=== PATIENT | female | born 1960 | race Two or more races ===

== ENCOUNTER 2019-08-22 08:58 | Emergency (ER) | payer OTHER ==
[~2019-08-22] VITALS: Ht 167.6 cm; Wt 7.3 kg
[2019-08-22] MEDS ORDERED: METFORMIN HCL500 M2 PO (09:09)
[2019-08-22] MEDS ORDERED: ULTRACET PO (17:20)
== END 2019-08-22 19:48 | disposition home or self-care (01) ==
LOC: ER 08:58
DX: M10.072 Idiopathic gout, left ankle and foot (principal); L03.032 Cellulitis of left toe

== ENCOUNTER 2020-12-25 14:06 | Outpatient (CLI) | payer OTHER ==
[~2020-12-25 14:06] MED LIST: METFORMIN HCL500 M2 PO; ULTRACET PO
== END 2020-12-25 14:16 | disposition home or self-care (01) ==
LOC: RAD 14:06
DX: M54.6 Pain in thoracic spine (principal); M54.5 Low back pain; M54.2 Cervicalgia